=== PATIENT | female | born 1950 | race Caucasian/White ===

== ENCOUNTER 2018-01-21 08:25 | Day surgery (SDC) | payer OTHER ==
[~2018-01-21] VITALS: Ht 177.8 cm; Wt 117.5 kg
[~2018-01-21 08:25] MED LIST: ALBU90OI6 INH; ASPI81CH PO; ATOR40TA PO; Advil Pm Liqui1 EACH PO; Aldactone50 MG PO; CENTRUM SILVER1 EAC2 PO; CHOL10002 PO; Flecainide Acet50 MG PO; INVOKANA300 MG PO; LEVSOD125 PO; LIVALO4 MG PO; LORA10 PO; LOSA25; LOSHYD PO; METF500 PO; METO50 PO; METO50ER PO; MONT10T PO; QVAR7.3 G1 IH; TORSE20 PO; TRAZ100 PO; Tambocor100 MG PO; UBID10; VITAMIN D35000 UNIT PO; XARELTO20 MG PO; XYZAL5 MG PO
== END 2018-01-21 10:26 | disposition home or self-care (01) ==
LOC: ORSCSDS 08:25
PROVIDERS: Surgery
PROC: 0DBP8ZX Excision of Rectum, Via Natural or Artificial Opening Endoscopic, Diagnostic (ICD-10-PCS; principal; 2018-01-21 09:45)
PROC: 0DBL8ZX Excision of Transverse Colon, Via Natural or Artificial Opening Endoscopic, Diagnostic (ICD-10-PCS; principal; 2018-01-21 09:45)
DX: Z12.11 Encounter for screening for malignant neoplasm of colon (principal); D12.3 Benign neoplasm of transverse colon; D12.8 Benign neoplasm of rectum; K57.30 Diverticulosis of large intestine without perforation or abscess without bleeding; Z86.010 Personal history of colon polyps; Z80.0 Family history of malignant neoplasm of digestive organs; Z87.891 Personal history of nicotine dependence; I10 Essential (primary) hypertension; E78.00 Pure hypercholesterolemia, unspecified; E11.9 Type 2 diabetes mellitus without complications; J45.909 Unspecified asthma, uncomplicated; Z86.711 Personal history of pulmonary embolism; I48.0 Paroxysmal atrial fibrillation; Z79.01 Long term (current) use of anticoagulants; Z79.84 Long term (current) use of oral hypoglycemic drugs; Z79.899 Other long term (current) drug therapy
CPT/HCPCS: 82947; 88305; J7120

== ENCOUNTER 2019-07-09 07:03 | Day surgery (SDC) | payer OTHER ==
[~2019-07-09] VITALS: Ht 177.8 cm; Wt 118.3 kg
[~2019-07-09 07:03] MED LIST changes: +Flonase 0.05% N16 GM; -LOSA25; +LOSA25 PO; +METO25ER PO; +QVAR REDIHALE10.6 G1 INH; -QVAR7.3 G1 IH; +TYLENOL PM PO; +ZOLP5 PO; +ZYRTEC10 M1 PO
--- NOTE | 2019-07-09 07:47 | NUR ---
Ambulatory in Day Surgery History, Chart, Medications and Allergies reviewed before start of procedure. Lungs clear T/O to Auscultation. Patient confirms NPO status and agrees with scheduled surgery. Pre-Op teaching done. Pt verbalizes understanding.
--- NOTE | 2019-07-09 07:58 | NUR ---
NOZIN SWABS TO BILATERAL NARES COMPLETED IN PREOPERATIVE SDS.
--- NOTE | 2019-07-09 08:07 | NUR ---
OFFERED RESTROOM TO EMPTY BLADDER, PATIENT DENIES NEED/ABILITY TO VOID AT THIS TIME.
--- NOTE | 2019-07-09 08:31 | NUR ---
[employer] REPORT COMPLETED AT BEDSIDE WITH JOSE PERALTA RN.
[2019-07-09] MEDS ORDERED: EUTHYROX137 MCG PO ×2 (16:02)
--- NOTE | 2019-07-09 17:39 | NUR ---
SHIFT SUMMARY PT A&OX4, VSS, S/P L TKA, AQUACEL CDI, NIKOLAI WRAP, ELEVATED, ICED, DENIES N&T. AMB W/FWW & GB TO BRP AND HALLWAY, UP IN CHAIR. SHALOM PO, DENIES N&V. DENIES PAIN; TYLENOL AND TORADOL GIVEN. VOIDING WELL. CBG AC/HS; COVERAGE PROVIDED 1X. WILL REPORT TO ONCOMING NOC RN.
[2019-07-10 04:54] LABS: BASOPHILS ABSOLUTE AUTO 0.02 K/mm3 (0.00-0.23); BASOPHILS PERCENT AUTO 0 % (0-2); EOSINOPHILS PERCENT AUTO 0 % (0-6); Hematocrit 37.5 % (33.0-51.0); Hemoglobin 12.1 g/dL (11.5-16.0); IMMATURE GRAN ABSOLUTE AUTO 0.07 K/mm3 (0.00-0.10); IMMATURE GRAN PERCENT AUTO 1 % (0-1); LYMPHOCYTES ABSOLUTE AUTO 2.18 K/mm3 (0.84-5.20); LYMPHOCYTES PERCENT AUTO 14 % (21-46); MONOCYTES ABSOLUTE AUTO 1.16 K/mm3 (0.16-1.47); MONOCYTES PERCENT AUTO 8 % (4-13); Mean Corpuscular HGB 31.3 pg (26.0-34.0); Mean Corpuscular HGB Conc 32.3 g/dL (31.5-36.5); Mean Corpuscular Volume 97 fL (80-100); Mean Platelet Volume 10.6 fL (9.1-12.4); NEUTROPHILS ABSOLUTE AUTO 11.99 K/mm3 (1.96-9.15); NEUTROPHILS PERCENT AUTO 78 % (41-73); Platelet Count 250 K/mm3 (150-400); RDW Coefficient Variation 12.6 % (11.7-14.2); RDW Standard Deviation 44.6 fL (35.1-46.3); Red Blood Cell Count 3.87 M/mm3 (3.80-5.20); White Blood Cell Count 15.42 K/mm3 (4.00-11.30)
[2019-07-10 05:13] LABS: Anion Gap 5 mmol/L (6-16); Blood Urea Nitrogen 27 mg/dL (8-24); Bun/Creatinine Ratio 33.9 (12.0-20.0); CO2, Blood 28 mmol/L (21-32); Calcium, Blood 9.2 mg/dL (8.5-10.1); Chloride, Blood 105 mmol/L (98-108); Glomerular Filtration Rate >60 (60-); Glucose, Blood 139 mg/dL (70-99); Potassium, Blood 4.3 mmol/L (3.5-5.5); Sodium, Blood 138 mmol/L (136-145)
--- NOTE | 2019-07-10 07:21 | NUR ---
PT HAS BEEN STABLE. POD 1 FROM A LEFT TKA. PT WORKED WELL WITH THERAPY AND NURSING TO GET UP TO CHAIR AND AMBULATE. VOIDING WELL. IV SL. DRESSING CDI. PAS,TEDS AND POLAR PACK IN PLACE. PRN AND SCHEDULED MEDS EFFECTIVE FOR PAIN. SHALOM DIET. USES CALL LIGHT APPROPRIATELY. PLAN DC TO HOME TODAY.
[2019-07-10] MEDS ORDERED: Percocet 5-3251 EACH PO ×2 (08:00)
[2019-07-10] MEDS ORDERED: CELE100 PO ×2 (08:01)
--- NOTE | 2019-07-10 10:09 | NUR ---
0915 DISCHARGE INSTRUCTIONS DISCHARGE INSTRUCTIONS REVIEWED WITH PATIENT AND HER . PATIENTS QUESTIONS ANSWERED. PATIENT DISCHARGED TO HOME AT 0930
--- NOTE | 2019-07-10 10:38 | NUR ---
07/10/19 1038 Tala Nelson VERIFICATIONS: EDIT CHART.
== END 2019-07-10 09:30 | disposition home or self-care (01) ==
LOC: ORSCMMR 07:03 → ORD 08:30 → ORSCMMR 08:30 → ORD 11:00 → SURS 11:24 → ORSCMMR 07-10 09:30
PROVIDERS: Orthopaedic Surgery
PROC: 0SRD0JA Replacement of Left Knee Joint with Synthetic Substitute, Uncemented, Open Approach (ICD-10-PCS; principal; 2019-07-09 08:30)
DX: M17.12 Unilateral primary osteoarthritis, left knee (principal); Z01.818 Encounter for other preprocedural examination; I10 Essential (primary) hypertension; Z87.891 Personal history of nicotine dependence; E11.9 Type 2 diabetes mellitus without complications; E03.9 Hypothyroidism, unspecified; E66.01 Morbid (severe) obesity due to excess calories; Z68.37 Body mass index [BMI] 37.0-37.9, adult; Z79.899 Other long term (current) drug therapy
CPT/HCPCS: 36415; 73560-LT; 80048; 82947; 85025; 86850; 86900; 86901; 88300; 94640; 94760; 97110; 97116; 97162; C1776; J0171; J0690; J0735; J1100; J1815; J1885; J2250; J2370; J2405; J2704; J2795; J3010; J7120

== ENCOUNTER 2019-07-12 04:50 | Emergency (ER) | payer OTHER ==
[~2019-07-12] VITALS: Ht 177.8 cm; Wt 117.9 kg
[~2019-07-12 04:50] MED LIST changes: +CELE100 PO; +EUTHYROX137 MCG PO; +Percocet 5-3251 EACH PO
[2019-07-12 05:15] LABS: BASOPHILS ABSOLUTE AUTO 0.08 K/mm3 (0.00-0.23); BASOPHILS PERCENT AUTO 1 % (0-2); EOSINOPHILS ABSOLUTE AUTO 0.04 K/mm3 (0.00-0.68); EOSINOPHILS PERCENT AUTO 0 % (0-6); Hematocrit 39.2 % (33.0-51.0); Hemoglobin 12.3 g/dL (11.5-16.0); IMMATURE GRAN ABSOLUTE AUTO 0.08 K/mm3 (0.00-0.10); IMMATURE GRAN PERCENT AUTO 1 % (0-1); LYMPHOCYTES ABSOLUTE AUTO 1.84 K/mm3 (0.84-5.20); LYMPHOCYTES PERCENT AUTO 13 % (21-46); MONOCYTES ABSOLUTE AUTO 0.96 K/mm3 (0.16-1.47); MONOCYTES PERCENT AUTO 7 % (4-13); Mean Corpuscular HGB 31.1 pg (26.0-34.0); Mean Corpuscular HGB Conc 31.4 g/dL (31.5-36.5); Mean Corpuscular Volume 99 fL (80-100); Mean Platelet Volume 10.4 fL (9.1-12.4); NEUTROPHILS ABSOLUTE AUTO 11.24 K/mm3 (1.96-9.15); NEUTROPHILS PERCENT AUTO 79 % (41-73); Platelet Count 252 K/mm3 (150-400); RDW Coefficient Variation 12.7 % (11.7-14.2); Red Blood Cell Count 3.96 M/mm3 (3.80-5.20); White Blood Cell Count 14.24 K/mm3 (4.00-11.30)
[2019-07-12 05:28] LABS: Alanine Aminotransfer (ALT/SGP 40 U/L (12-78); Albumin, Blood 2.9 g/dL (3.4-5.0); Albumin/Globulin Ratio 0.7 (0.8-1.8); Alk Phos 80 U/L (50-136); Anion Gap 8 mmol/L (6-16); Aspartate Aminotrans (AST/SGOT 49 U/L (12-37); Bilirubin, Total 1.6 mg/dL (0.1-1.0); Blood Urea Nitrogen 14 mg/dL (8-24); Bun/Creatinine Ratio 23.6 (12.0-20.0); CO2, Blood 25 mmol/L (21-32); Calcium, Blood 9.2 mg/dL (8.5-10.1); Chloride, Blood 105 mmol/L (98-108); Creatinine, Blood 0.59 mg/dL (0.40-1.00); Globulin, Blood 3.9 g/dL (2.2-4.0); Glomerular Filtration Rate >60 (60-); Glucose, Blood 143 mg/dL (70-99); Potassium, Blood 4.3 mmol/L (3.5-5.5); Sodium, Blood 138 mmol/L (136-145); Total Protein, Blood 6.8 g/dL (6.4-8.2)
== END 2019-07-12 08:31 | disposition home or self-care (01) ==
LOC: ER 04:50
PROVIDERS: Emergency Medicine
DX: R11.2 Nausea with vomiting, unspecified (principal); R00.0 Tachycardia, unspecified; I10 Essential (primary) hypertension; E11.9 Type 2 diabetes mellitus without complications; I48.91 Unspecified atrial fibrillation; J45.909 Unspecified asthma, uncomplicated; Z86.711 Personal history of pulmonary embolism; Z87.891 Personal history of nicotine dependence; Z96.651 Presence of right artificial knee joint; Z79.899 Other long term (current) drug therapy; Z79.84 Long term (current) use of oral hypoglycemic drugs; Z79.01 Long term (current) use of anticoagulants; Z79.1 Long term (current) use of non-steroidal anti-inflammatories (NSAID)
CPT/HCPCS: 36415; 80053; 83690; 84484; 85025; 93005; 93010; 96361; 96374; 96375; 99284-25; J2405; J3010; J7030